=== PATIENT | female | born 1975 | race Caucasian/White ===

== ENCOUNTER 2018-12-02 10:42 | Day surgery (SDC) | payer MEDICAID ==
[2018-11-30 16:34] LABS: BASOPHILS % (AUTO) 0.4 % (0-1); EOSINOPHILS # (AUTO) 0.2 X10'3 (0-0.9); EOSINOPHILS % (AUTO) 1.9 % (0-6); LYMPHOCYTES # (AUTO) 1.6 X10'3 (1.1-4.8); LYMPHOCYTES % (AUTO) 18.6 % (21-51); MEAN CORPUSCULAR HEMOGLOBIN 27.9 PG (27.0-31.0); MEAN CORPUSCULAR VOLUME 84.5 FL (78-98); MEAN PLATELET VOLUME 8.7 FL (7.4-10.4); MONOCYTES # (AUTO) 0.6 X10'3 (0-0.9); MONOCYTES % (AUTO) 6.8 % (2-12); NEUTROPHILS % (AUTO) 72.3 % (42-75); PRE OP HEMATOCRIT 40.1 % (35.0-45.0); PRE OP HEMOGLOBIN 13.2 g/dL (12.0-16.0); PRE OP PLATELET COUNT 260 X10'3 (140-440); RED BLOOD COUNT 4.74 X10'6 (4.20-5.60); RED CELL DISTRIBUTION WIDTH 15.7 % (11.5-14.5)
[2018-11-30 16:50] LABS: ALBUMIN 3.6 G/DL (3.4-5.0); ALKALINE PHOSPHATASE 59 IU/L (46-116); BLOOD UREA NITROGEN 11 MG/DL (7-18); BUN/CREATININE RATIO 10.7 (6.6-38.0); CALCIUM 8.4 MG/DL (8.5-10.1); CHLORIDE 104 MMOL/L (99-107); CREATININE 1.03 MG/DL (0.40-0.90); PRE OP ALT 22 U/L (30-65); PRE OP ANION GAP 9 (8-16); PRE OP AST 15 U/L (10-37); PRE OP BILIRUB, TOTAL 0.2 MG/DL (0.0-1.0); PRE OP GLUCOSE 97 MG/DL (70-104); PRE OP POTASSIUM 3.5 MMOL/L (3.4-5.1); PRE OP SODIUM 141 MMOL/L (135-145); TOTAL CARBON DIOXIDE 27.9 MMOL/L (24-32); TOTAL PROTEIN 7.3 G/DL (6.4-8.2); eGFR 58 ML/MIN
[2018-11-30 17:27] LABS: HCG SERUM QL NEGATIVE
[2018-12-02] VITALS (9 sets, daily range): BP systolic 99–122; BP diastolic 58–75
[~2018-12-02] VITALS: Ht 167.6 cm; Wt 68.9 kg
[~2018-12-02 10:42] MED LIST: NO HOME MEDS; famotidine 20mg tablet PO ONE; ringers solution, lacted 1,000 ML IV SCH
[2018-12-02] MEDS ORDERED: fentaNYL /PF 50mcg/ml 5ml ampule ONE (13:30)
[2018-12-02] MEDS ORDERED: midazolam 2 mg/2 ml injection ONE (13:30)
--- NOTE | 2018-12-02 14:11 | NUR ---
Received from OR via , accompanied by Anesthesiologist DR GUNN and report given by Anesthesiolgist. AWAKENS TO VOICE. VITALS STABLE. DRESSING DI. HALEY PAIN. ABD SOFT.
[2018-12-02] MEDS ORDERED: ringers solution, lacted 1,000 ML IV SCH (14:17)
[2018-12-02] MEDS ORDERED: oxyCODONE/APAP 5-325mg tablet PO ONE (14:20)
[2018-12-02] MEDS ORDERED: proCHLORperazine 10 MG/2 ml inj IV PRN (14:20)
[2018-12-02] MEDS ORDERED: meperidine/PF 25mg/ml syringe IV PRN ×3 (14:20)
[2018-12-02] MEDS ORDERED: morphine 4 MG/ML inj SYRINge IV PRN ×2 (14:20)
[2018-12-02] MEDS ORDERED: ondansetron/PF 4mg/2ml inj IV PRN (14:20)
[2018-12-02] MEDS ORDERED: LIDOcaine 2% (20mg/ml) 5ml vial ONE (14:30)
[2018-12-02] MEDS ORDERED: neostigmine methylsulfate 1 MG/ML 10ml vial ONE (14:30)
[2018-12-02] MEDS ORDERED: propofol inj 20 ML IV ONE (14:30)
[2018-12-02] MEDS ORDERED: dexamethasone sod phosphate 4mg/ml inj. ONE (14:30)
[2018-12-02] MEDS ORDERED: glycopyrrolate 0.2mg/ml inj ONE (14:30)
[2018-12-02] MEDS ORDERED: rocuronium 10mg/ml inj IV ONE (14:30)
[2018-12-02] MEDS ORDERED: ondansetron/PF 4mg/2ml inj ONE (14:30)
--- NOTE | 2018-12-02 15:21 | NUR ---
AWAKE AND ORIENTED. VITALS STABLE. DRESSING DI. HALEY PAIN. HOME WITH A FRIEND AT THIS TIME.
== END 2018-12-02 15:21 | disposition home or self-care (01) ==
LOC: PAS 10:42
PROVIDERS: ATTEND Obstetrics & Gynecology
DX: N85.01 Benign endometrial hyperplasia (principal); N92.0 Excessive and frequent menstruation with regular cycle; N85.8 Other specified noninflammatory disorders of uterus; K21.9 Gastro-esophageal reflux disease without esophagitis; Z87.891 Personal history of nicotine dependence; Z88.1 Allergy status to other antibiotic agents; Z90.5 Acquired absence of kidney; Z98.890 Other specified postprocedural states; Z83.2 Family history of diseases of the blood and blood-forming organs and certain disorders involving the immune mechanism; Z82.3 Family history of stroke; Z83.3 Family history of diabetes mellitus; Z84.0 Family history of diseases of the skin and subcutaneous tissue
CPT/HCPCS: 36415; 58558; 80053; 82948; 84703; 85025; 86885; 86900; 86901; A6255; J1100; J2001; J2250; J2405; J2704; J2710; J3010; A4355; A7000; J3490; J7120